=== PATIENT | female | born 1935 | race Caucasian/White ===

== ENCOUNTER → 2016-08-11 | Outpatient (CLI) | payer MEDICARE, OTHER ==
--- NOTE | 2016-08-11 16:46 | RAD ---
EXAM DESCRIPTION: Knee,Left Complete CLINICAL HISTORY: 81 years,Female,PAIN INLEFT KNEE COMPARISON: September 25, 2014 FINDINGS: The left knee demonstrates no fractures, dislocations, or other acute bony abnormalities. The joint spaces moderate loss of patellofemoral compartment and mild to minimal in the medial compartment. The soft tissues are unremarkable. No joint effusion. 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
--- NOTE | 2016-08-11 16:51 | RAD ---
EXAM DESCRIPTION: Pelvis CLINICAL HISTORY: 81 years, Female, PAIN IN LEFT HIP COMPARISON: September 25, 2014 FINDINGS: Pelvis demonstrates no fractures or other acute adenitis. The joint spaces of the hips and SI joints appear age-appropriate with only mild ossified changes of the SI joints which for the patient's age it extremely good. Multiple calcified bodies in the pelvis most likely phleboliths and a small amount of iodinated contrast seen in the urinary bladder IMPRESSION: Pelvis looks unremarkable for patient's age stable. There is what appears to be iodinated contrast in the urinary bladder. But I see no studies which required that therefore cannot exclude a triangular shaped foreign body overlying the region of the urinary bladder. Electronically signed by: Olayinka Higgins MD 08/11/2016 4:50 PM CDT
== END ==
LOC: RAD 08:00
PROVIDERS: ATTEND Orthopaedic Surgery
DX: M25.562 Pain in left knee (principal); M25.552 Pain in left hip

== ENCOUNTER → 2016-12-26 | Outpatient (CLI) | payer MEDICARE, OTHER | END | disposition home or self-care (01) | LOC: GMAB 10:25 | PROVIDERS: ATTEND Family Medicine | DX: E03.9 Hypothyroidism, unspecified (principal); I10 Essential (primary) hypertension ==

== ENCOUNTER → 2017-01-04 | Outpatient (CLI) | payer MEDICARE, OTHER ==
--- NOTE | 2017-01-05 09:15 | RAD ---
EXAM DESCRIPTION: Chest,2 Views CLINICAL HISTORY: COUGH COMPARISON: August 06, 2015 FINDINGS: Two-view chest x-ray shows enlargement of the cardiac silhouette. Pulmonary vascularity is mildly prominent. Left subclavian dual-lead transvenous cardiac pacemaker is stable. The lungs are mildly hyperinflated. Chronic appearing increased interstitial changes throughout the lungs are seen. Prominent increased interstitial markings in the right hilar and left infrahilar region are seen compared to previous. There is a nodular density only seen on lateral projection anterior to the spine in the lower chest. The small calcified pulmonary nodule seen on CT scan of the chest from July 2013 are difficult to identify. No significant pleural effusion is seen. Mild disc degenerative changes of the spine are seen. IMPRESSION: Chronic appearing increased interstitial markings in the lungs are noted. This appears progressively more prominent than previous exam. Superimposed acute pneumonia or pneumonitis on chronic interstitial changes versus worsening of chronic interstitial fibrotic disease is suspected. Pulmonary nodule in the lower chest anterior to the spine only seen on lateral projection seen. Consider further evaluation with CT of the chest for better delineation of this finding in comparison with chest CT from July 2013. Electronically signed by: Erich Hunter MD 01/05/2017 9:14 AM CDT
--- NOTE | 2017-01-05 10:20 | US ---
EXAM DESCRIPTION: Carotid Duplex CLINICAL HISTORY: 81 years,Female,BILATERAL OCLUSION COMPARISON: None TECHNIQUE: Multiple real-time duplex Doppler ultrasound images were obtained the carotid arteries. FINDINGS: The right carotid system demonstrates severe intimal thickening. The common carotid artery demonstrates mild soft tissue plaque at the carotid bulb but results in about a 40% diameter reduction at the origin of the internal carotid artery and is rather focal.. The ICA demonstrates diffuse irregular plaque throughout slightly less than 10-20% stenotic and all mostly soft tissue plaque. The left carotid system demonstrates severe intimal thickening. The common carotid artery demonstrates mild diffuse soft tissue plaque distally and into the bulb of no symptoms stenosis greater than 20%. The internal carotid artery demonstrates scattered mild soft tissue wall plaques as well but no significant stenosis greater than 20%. The right carotid system demonstrates rather irregular waveforms. The right vertebral artery demonstrates antegrade flow. The left carotid system demonstrates regular and irregular waveforms. The left vertebral artery demonstrates antegrade flow. On the right, the velocity in the proximal common carotid artery is 55 cm/sec. The mid internal carotid artery is 87 cm/sec. The ICA/CCA ratio is 1.6 On the left, the velocity in the proximal common carotid artery is 61 cm/sec. The distal internal carotid artery is 59 cm/sec. The ICA/CCA ratio is 1. IMPRESSION: There is severe intimal thickening bilaterally. And mostly diffuse mild less than 20% soft tissue plaques throughout. However at the very origin of the right internal carotid artery there is a very focal soft tissue plaque which may result in about 40% diameter reduction. But no hemodynamic significant stenosis. Electronically signed by: Olayinka Higgins MD 01/05/2017 10:18 AM CDT
== END | disposition home or self-care (01) ==
LOC: US 14:45
PROVIDERS: ATTEND Family Medicine
DX: I65.23 Occlusion and stenosis of bilateral carotid arteries (principal); R05 Cough

== ENCOUNTER 2017-01-10 00:56 | Emergency (ER) | payer MEDICARE, OTHER ==
[2017-01-10] MEDS ORDERED: LABETALOL INJ 5 MG/ML VIAL IV ONE (01:18)
[2017-01-10] MEDS ORDERED: SODIUM CHLORIDE 0.9% 1000ML 1,000 ML IVS ONE (01:18)
--- NOTE | 2017-01-10 01:22 | ED.PDOC ---
History of Present Illness - General Chief Complaint: Cardiovascular Problem Stated Complaint: "heart racing" Time Seen by Provider: 01/10/17 01:05 Source: patient, RN notes reviewed, Vital Signs reviewed Exam Limitations: no limitations - History of Present Illness Initial Comments: Patient comes in with c/o of a rapid heart rate and low blood pressure. She was recently diagnosed with pneumonia and has been on 2 antibiotics and prednisone. For the past week her blood pressure has been running low so her Self Defense Instructor cut her Amilodipine in 1/ last Sunday. He pulse had been in the 60-80's until tonight when she felt her a. fib kick in. No chest pain or SOB. Timing/Duration: 1-3 hours Severity: moderate Location: other - No pain just palpitations Activities at Onset: rest Prior Chest Pain/Cardiac Workup: other - Known A. Fib with pacemaker placed in 2015 Improving Factors: nothing Worsening Factors: nothing Nitro Today/Relief: no nitro taken today Aspirin Treatment Today: no aspirin today Associated Symptoms: denies symptoms Allergies/Adverse Reactions: Allergies NO KNOWN ALLERGY Allergy (Verified 01/10/17 01:16) Home Medications: Ambulatory Orders Fexofenadine HCl [Sary Allergy] 180 mg PO DAILY 04/30/12 Furosemide 40 mg PO DAILY 04/30/12 Rivaroxaban [Xarelto] 20 mg PO DAILY 06/28/14 Acetaminophen [Tylenol] 500 mg PO PRN PRN 08/06/15 Losartan Potassium 50 mg PO DAILY 08/06/15 Levothyroxine Sodium [Synthroid] 50 mcg PO QAM #30 tab 08/07/15 Metoprolol Tartrate 25 mg PO QPM #30 tab 08/07/15 Metoprolol Tartrate [Lopressor] 12.5 mg PO QAM #30 tab 08/07/15 Acetaminophen [Tylenol] 500 mg PO PRN 01/10/17 Amlodipine Besylate 10 mg PO DAILY 01/10/17 Amoxicillin & Pot Clavulanate [Augmentin] 875 mg PO BID 01/10/17 Doxycycline Hyclate 100 mg PO BID 01/10/17 Fexofenadine HCl [Sary Allergy] 180 mg PO PRN 01/10/17 Saccharomyces Boulardii [Florastor] 250 mg PO DAILY 01/10/17 predniSONE 10 mg PO DAILY 01/10/17 Review of Systems - Review of Systems Constitutional: States: no symptoms reported EENTM: States: no symptoms reported Respiratory: States: cough - currently being treated for pneumonia Cardiology: States: palpitations. Denies: chest pain Gastrointestinal/Abdominal: States: no symptoms reported Musculoskeletal: States: no symptoms reported Skin: States: no symptoms reported Neurological: States: no symptoms reported All other Systems: No Change from Baseline Past Medical History (General) - Patient Medical History Hx Seizures: No Hx Stroke: No Hx Dementia: No Hx Asthma: No Hx of COPD: No Hx Cardiac Disorders: Yes Hx Congestive Heart Failure: Yes Hx Pacemaker: No Hx Hypertension: Yes Hx Thyroid Disease: No Hx Diabetes: No Hx Gastroesophageal Reflux: No Hx Renal Disease: No Hx Cancer: No Hx of HIV: No Hx Hepatitis C: No Hx MRSA: No - Vaccination History Hx Tetanus, Diphtheria Vaccination: No Hx Influenza Vaccination: Yes Hx Pneumococcal Vaccination: No - Social History Hx Tobacco Use: No Hx Alcohol Use: No Hx Substance Use: No Hx Substance Use Treatment: No Hx Depression: No Hx Physical Abuse: No Hx Emotional Abuse: No Hx Suspected Abuse: No - Female History Patient : No Family Medical History - Family History Mother Family History: Unknown Physical Exam - Physical Exam General Appearance: Alert, Comfortable, No apparent distress, Well Developed, Well Groomed, Well Nourished Neck: supple, normal inspection Respiratory: lungs clear, normal breath sounds, no respiratory distress, no accessory muscle use Cardiovascular/Chest: no gallop, no murmur, irregularly irregular Extremity: normal inspection Neurologic: alert, normal mood/affect, oriented x 3 Skin Exam: normal color, warm/dry Comments: Vital Signs 01/10/17 01:17 Temperature 97.6 F Pulse Rate [ 142 H left] Respiratory 18 Rate Blood Pressure 116/93 [left] O2 Sat by Pulse 91 L Oximetry Progress - Progress Progress: 01/10/17 02:33 Discussed with patient that I don't believe I will be able to get her HR stabilized without dropping her blood pressure too low. Will transfer to [facility] Discussed with Dr. Wright who accepts patient in transfer and would like her started on a Cardizem drip - Results/Orders Results/Orders: Laboratory Tests 01/10/17 01/10/17 01/10/17 01:15 01:15 01:15 WBC 10.5 RBC 4.63 Hgb 14.4 Hct 42.2 MCV 91.2 MCH 31.0 MCHC 34.0 RDW 14.8 H Plt Count 241 MPV 9.3 Absolute Neuts (auto) 6.90 H Absolute Lymphs (auto) 2.70 Absolute Monos (auto) 0.80 Absolute Eos (auto) 0.00 Absolute Basos (auto) 0.10 Neutrophils % 65.2 Lymphocytes % 26.1 Monocytes % 7.6 Eosinophils % 0.4 L Basophils % 0.7 Sodium 142 Potassium 3.5 L Chloride 108 Carbon Dioxide 23 Anion Gap 14.5 BUN 30 H Creatinine 1.21 BUN/Creatinine Ratio 24.8 H Random Glucose 131 H Serum Osmolality 291.1 Calcium 9.3 Magnesium Total Bilirubin 0.6 AST 29 ALT 20 Alkaline Phosphatase 73 Creatine Kinase 29 CK-MB (CK-2) 1.2 CK-MB (CK-2) % Not Reportable Troponin I < 0.02 Serum Total Protein 6.9 Albumin 4.0 Globulin 2.9 Albumin/Globulin Ratio 1.4 01/10/17 01:15 WBC RBC Hgb Hct MCV MCH MCHC RDW Plt Count MPV Absolute Neuts (auto) Absolute Lymphs (auto) Absolute Monos (auto) Absolute Eos (auto) Absolute Basos (auto) Neutrophils % Lymphocytes % Monocytes % Eosinophils % Basophils % Sodium Potassium Chloride Carbon Dioxide Anion Gap BUN Creatinine BUN/Creatinine Ratio Random Glucose Serum Osmolality Calcium Magnesium 1.9 Total Bilirubin AST ALT Alkaline Phosphatase Creatine Kinase CK-MB (CK-2) CK-MB (CK-2) % Troponin I Serum Total Protein Albumin Globulin Albumin/Globulin Ratio - EKG/XRAY/CT EKG: Atrial, Fibrillation - with RVR, nonspecific ST T wave Chg, Unchanged from - Not significantly changed from 10/06/15 Departure - Departure Clinical Impression: Atrial fibrillation with rapid ventricular response Time of Disposition: 02:34 Disposition: Transfer to Hospital Condition: Good Departure Forms: ED Discharge - Pt. Copy, Patient Portal Self Enrollment Referrals: Yunier Martin MD [Primary Care Provider] - 1-2 Weeks Home Medications: Ambulatory Orders Fexofenadine HCl [Sary Allergy] 180 mg PO DAILY 04/30/12 Furosemide 40 mg PO DAILY 04/30/12 Rivaroxaban [Xarelto] 20 mg PO DAILY 06/28/14 Acetaminophen [Tylenol] 500 mg PO PRN PRN 03/25/16 Losartan Potassium 50 mg PO DAILY 08/06/15 Levothyroxine Sodium [Synthroid] 50 mcg PO QAM #30 tab 08/07/15 Metoprolol Tartrate 25 mg PO QPM #30 tab 08/07/15 Metoprolol Tartrate [Lopressor] 12.5 mg PO QAM #30 tab 08/07/15 Acetaminophen [Tylenol] 500 mg PO PRN 01/10/17 Amlodipine Besylate 10 mg PO DAILY 01/10/17 Amoxicillin & Pot Clavulanate [Augmentin] 875 mg PO BID 01/10/17 Doxycycline Hyclate 100 mg PO BID 01/10/17 Fexofenadine HCl [Sary Allergy] 180 mg PO PRN 01/10/17 Saccharomyces Boulardii [Florastor] 250 mg PO DAILY 01/10/17 predniSONE 10 mg PO DAILY 01/10/17 Transfer to Outside Facility - Transfer Information Accepting Provider:: Dr. Wright Accepting Facility: [facility] Reason for Transfer: specialized care not available
[2017-01-10] MEDS ORDERED: diltiaZEM DRIP 125 MG/25 ML VIAL IVPB ONE (02:36)
[2017-01-10] MEDS ORDERED: SODIUM CHLORIDE 0.9% 100ML 100 ML IVPB ONE (02:36)
[2017-01-10] MEDS ORDERED: diltiaZEM DRIP 125 MG in SODIUM CHLORIDE 0.9% 100ML 100 ML IVPB SCH (03:00)
[2017-01-10 03:04] VITALS: TEMP 97
[2017-01-10 03:26] VITALS: BP 129/81; O2SAT 94
== END 2017-01-10 03:31 | disposition short-term general hospital (02) ==
LOC: ER 00:56
DX: I48.91 Unspecified atrial fibrillation (principal); I11.0 Hypertensive heart disease with heart failure; I10 Essential (primary) hypertension; Z79.899 Other long term (current) drug therapy
CPT/HCPCS: 36415; 80053; 82550; 82553; 83735; 84484; 85025; 93005; J7030; J7050

== ENCOUNTER → 2017-02-08 | Outpatient (CLI) | payer MEDICARE, OTHER ==
--- NOTE | 2017-02-08 18:02 | CT ---
EXAM DESCRIPTION: Chest w/o Contrast CLINICAL HISTORY: 81 years, Female, SOLITARY PULMONARY NODULE COMPARISON: Chest x-ray January 04, 2017 TECHNIQUE: Thin-section noncontrast axial CT images are obtained according to our protocol. Reconstructed MPR images are created and reviewed as well. This exam was performed according to our departmental dose-optimization program, which includes automated exposure control, adjustment of the mA and/or kV according to patient size and/or use of iterative reconstruction technique. FINDINGS: Contrast CT evaluation of the chest shows posterior basilar dependent atelectasis and/or mild subpleural scarring. Small calcified granulomata are noted in the posterior right lung that do not represent the plain film abnormality. There is mild inflammatory changes or patchy scarring in the mid lung field laterally on the right with two tiny granulomata in the posterior right apex subpleural in location are noted. An additional small granulomatous calcification in the medial posterior aspect of the right midlung is noted. On the left there is mild dependent atelectasis and subpleural scarring with numerous small granulomatous calcifications. Pattern is most consistent with old granulomatous disease such as coccidiomycosis or histoplasmosis. A soft tissue density nodule or mass to suggest malignancy or metastatic disease is not apparent. Permanent left-sided cardiac pacer is in place and a small pericardial effusion is incidentally noted below the diaphragm small granulomatous calcifications within the liver and spleen are noted. The thoracic inlet and superior mediastinum are unremarkable with small subcentimeter mediastinal lymph nodes noted. The hilar region is unremarkable. IMPRESSION: 1. Numerous small granulomatous calcifications both lungs as well as the liver and spleen consistent with old granulomatous disease. 2. No dominant pulmonary mass or soft tissue density pulmonary nodule to suggest metastatic disease or a primary pulmonary malignancy is seen. 3. Mild cardiomegaly and a small pericardial effusion. 4. Indwelling permanent pacer. Electronically signed by: Garland Mccartney MD 02/08/2017 6:01 PM CDT
== END | disposition home or self-care (01) ==
LOC: CT 09:00
PROVIDERS: ATTEND Family Medicine
DX: R91.1 Solitary pulmonary nodule (principal)

== ENCOUNTER 2017-09-01 14:04 | Emergency (ER) | payer MEDICARE, OTHER ==
[2017-09-01] MEDS ORDERED: IPRATROPIUM/ALBUTEROL 3 ML VIAL NEB ONE ×2 (14:36→17:03)
--- NOTE | 2017-09-01 14:36 | ED.PDOC ---
History of Present Illness - General Chief Complaint: Respiratory Problem Stated Complaint: cough Time Seen by Provider: 09/01/17 14:35 Source: patient Exam Limitations: no limitations - History of Present Illness Comments: Chioma Morton 82 y/o female stated she had dry cough for the last 3 weeks not getting better has b-agonist inhaler and stated has it during fall and spring .Denies history of asthma.No fever or chills.Stated just SOB during coughing episodes. Timing/Duration: other - 3 weeks Cough Quality/Degree: dry cough Possible Cause: allergen exposure Improving Factors: nothing Worsening Factors: other - seasonal Associated Symptoms: other - see hpi Allergies/Adverse Reactions: Allergies NO KNOWN ALLERGY Allergy (Verified 01/10/17 01:16) Home Medications: Ambulatory Orders Fexofenadine HCl [Sary Allergy] 180 mg PO DAILY 04/30/12 Furosemide 40 mg PO DAILY 04/30/12 Rivaroxaban [Xarelto] 20 mg PO DAILY 06/28/14 Acetaminophen [Tylenol] 500 mg PO PRN PRN 08/06/15 Losartan Potassium 50 mg PO DAILY 08/06/15 Levothyroxine Sodium [Synthroid] 50 mcg PO QAM #30 tab 08/07/15 Metoprolol Tartrate 25 mg PO QPM #30 tab 08/07/15 Metoprolol Tartrate [Lopressor] 12.5 mg PO QAM #30 tab 08/07/15 Acetaminophen [Tylenol] 500 mg PO PRN 01/10/17 Amlodipine Besylate 10 mg PO DAILY 01/10/17 Amoxicillin & Pot Clavulanate [Augmentin] 875 mg PO BID 01/10/17 Doxycycline Hyclate 100 mg PO BID 01/10/17 Fexofenadine HCl [Sary Allergy] 180 mg PO PRN 01/10/17 Saccharomyces Boulardii [Florastor] 250 mg PO DAILY 01/10/17 predniSONE 10 mg PO DAILY 01/10/17 Montelukast [Singulair] 10 mg PO BEDTIME #30 tab 09/01/17 predniSONE 20 mg PO DAILY #7 tab 09/01/17 Review of Systems - Review of Systems Constitutional: States: no symptoms reported EENTM: States: no symptoms reported Respiratory: States: see HPI Cardiology: States: no symptoms reported Gastrointestinal/Abdominal: States: no symptoms reported Genitourinary: States: no symptoms reported All other Systems: Reviewed and Negative, No Change from Baseline Past Medical History (General) - Patient Medical History Hx Seizures: No Hx Stroke: No Hx Dementia: No Hx Asthma: No Hx of COPD: No Hx Cardiac Disorders: Yes Hx Congestive Heart Failure: Yes Hx Pacemaker: No Hx Hypertension: Yes Hx Thyroid Disease: No Hx Diabetes: No Hx Gastroesophageal Reflux: No Hx Renal Disease: No Hx Cancer: No Hx of HIV: No Hx Hepatitis C: No Hx MRSA: No Surgical History: tonsillectomy - Vaccination History Hx Tetanus, Diphtheria Vaccination: No Hx Influenza Vaccination: Yes Hx Pneumococcal Vaccination: No - Social History Hx Tobacco Use: No Hx Alcohol Use: No Hx Substance Use: No Hx Substance Use Treatment: No Hx Depression: No Hx Physical Abuse: No Hx Emotional Abuse: No Hx Suspected Abuse: No - Female History Patient : No Family Medical History - Family History Mother Family History: Unknown Hx Family Hypertension: Yes - parents Hx Cardiac Disease: Yes - dad Physical Exam - Physical Exam General Appearance: Alert, Comfortable, No apparent distress Eye Exam: bilateral normal ENT Exam: normal ENT inspection, hearing grossly normal, pharynx normal Neck: non-tender, full range of motion, supple Respiratory: chest non-tender, lungs clear, normal breath sounds, no respiratory distress, other - speaks in full sentences Cardiovascular/Chest: normal peripheral pulses, regular rate, rhythm, no murmur Gastrointestinal/Abdominal: non tender, soft, no organomegaly Extremity: normal range of motion, non-tender, no pedal edema, no calf tenderness Skin Exam: normal color, warm/dry Lymphatic: no adenopathy Progress - Progress Progress: 09/01/17 17:26 Vital Signs - 8 hr 09/01/17 09/01/17 09/01/17 14:20 15:21 17:23 Temperature 99.6 F Pulse Rate 71 77 Pulse Rate [ 70 left brachial] Respiratory 22 18 18 Rate Blood Pressure 103/58 [left brachial] O2 Sat by Pulse 92 L 94 L 97 Oximetry - Results/Orders Results/Orders: 09/02/17 09:00 [facility] Daily [facility] Daily Laboratory Results - last 24 hr 09/01/17 09/01/17 14:56 14:56 WBC 8.1 RBC 4.60 Hgb 13.5 Hct 40.6 MCV 88.3 MCH 29.4 MCHC 33.3 RDW 16.7 H Plt Count 310 MPV 7.9 Absolute Neuts (auto) 5.70 Absolute Lymphs (auto) 1.40 Absolute Monos (auto) 0.80 Absolute Eos (auto) 0.10 Absolute Basos (auto) 0.10 Neutrophils % 70.7 Lymphocytes % 17.0 L Monocytes % 10.2 H Eosinophils % 0.7 L Basophils % 1.4 PT 22.7 H* INR 1.970 PTT (SP) 45.0 H Sodium 144 Potassium 4.3 Chloride 107 Carbon Dioxide 27 Anion Gap 14.3 BUN 22 H Creatinine 1.17 BUN/Creatinine Ratio 18.8 Random Glucose 104 Serum Osmolality 290.5 Lactic Acid 1.6 Calcium 9.4 Magnesium 1.8 Total Bilirubin 0.7 Direct Bilirubin 0.1 Indirect Bilirubin 0.6 AST 28 ALT 12 Alkaline Phosphatase 82 Creatine Kinase 71 CK-MB (CK-2) 1.5 CK-MB (CK-2) % Not Reportable Troponin I < 0.02 B-Natriuretic Peptide 668.0 H* Serum Total Protein 7.3 Albumin 3.8 - EKG/XRAY/CT XRAY: chest - no acute cardiopulmonary disease Departure - Departure Clinical Impression: Reactive airway disease with acute exacerbation Qualifiers: Asthma severity: unspecified severity Qualified Code(s): J45.901 - Unspecified asthma with (acute) exacerbation Time of Disposition: 17:29 Disposition: Discharge to Home or Self Care Condition: Fair Departure Forms: ED Discharge - Pt. Copy, Patient Portal Self Enrollment Instructions: DI for Reactive Airway Disease-Adult, Reactive Airway Disease- Adult Referrals: Yunier Martin MD [Primary Care Provider] - 1-2 Weeks Prescriptions: Montelukast [Singulair] 10 mg PO BEDTIME #30 tab predniSONE 20 mg PO DAILY #7 tab Home Medications: Ambulatory Orders Fexofenadine HCl [Sary Allergy] 180 mg PO DAILY 04/30/12 Furosemide 40 mg PO DAILY 04/30/12 Rivaroxaban [Xarelto] 20 mg PO DAILY 06/28/14 Acetaminophen [Tylenol] 500 mg PO PRN PRN 08/06/15 Losartan Potassium 50 mg PO DAILY 08/06/15 Levothyroxine Sodium [Synthroid] 50 mcg PO QAM #30 tab 08/07/15 Metoprolol Tartrate 25 mg PO QPM #30 tab 03/26/16 Metoprolol Tartrate [Lopressor] 12.5 mg PO QAM #30 tab 08/07/15 Acetaminophen [Tylenol] 500 mg PO PRN 01/10/17 Amlodipine Besylate 10 mg PO DAILY 01/10/17 Amoxicillin & Pot Clavulanate [Augmentin] 875 mg PO BID 01/10/17 Doxycycline Hyclate 100 mg PO BID 01/10/17 Fexofenadine HCl [Sary Allergy] 180 mg PO PRN 01/10/17 Saccharomyces Boulardii [Florastor] 250 mg PO DAILY 01/10/17 predniSONE 10 mg PO DAILY 01/10/17 Montelukast [Singulair] 10 mg PO BEDTIME #30 tab 09/01/17 predniSONE 20 mg PO DAILY #7 tab 09/01/17 Additional Instructions: May Take Mucinex -DM one tablet am/pm for cough ;continue with all home meds; Follow up with primary Md 03 September 2017 as needed;Return to ER as needed
--- NOTE | 2017-09-01 15:06 | RAD ---
EXAM DESCRIPTION: Chest,1 View CLINICAL HISTORY: cough COMPARISON: January 04, 2017 FINDINGS: Cardiac silhouette is within normal limits. Pacer leads project over the heart. There is atherosclerosis. There is no focal parenchymal or pleural disease. There is no acute osseous process visualized. IMPRESSION: No evidence of acute cardiopulmonary disease. Electronically signed by: Nikhil Taylor MD 09/01/2017 3:05 PM CDT
[2017-09-01 15:20] VITALS: TEMP 99.6
[2017-09-01] MEDS ORDERED: methylPREDNISolone SODIUM SUC 125 MG/2 ML VIAL IV ONE (16:28)
[2017-09-01] MEDS ORDERED: BENZONATATE PERLES 100 MG CAP PO ONE (17:27)
[2017-09-01] MEDS ORDERED: MONTELUKAST 10 MG TAB PO ONE (17:28)
[2017-09-01 17:50] VITALS: BP 104/45; O2SAT 92
== END 2017-09-01 17:45 | disposition home or self-care (01) ==
LOC: ER 14:04
DX: J45.901 Unspecified asthma with (acute) exacerbation (principal); I11.0 Hypertensive heart disease with heart failure; I50.9 Heart failure, unspecified; Z79.899 Other long term (current) drug therapy

== ENCOUNTER 2017-12-12 00:30 | Emergency (ER) | payer OTHER ==
[2017-12-12 00:46] VITALS: TEMP 97.8
[2017-12-12] MEDS ORDERED: NITROGLYCERIN 0.4 MG 25 EA TAB SL ONE ×2 (00:46→00:47)
[2017-12-12] MEDS ORDERED: ASPIRIN (CHEWABLE) 81 MG TAB ONE (00:47)
--- NOTE | 2017-12-12 00:54 | ED.PDOC ---
History of Present Illness - General Chief Complaint: Blood Pressure Problem Stated Complaint: right upper arm numb, nausea Time Seen by Provider: 12/12/17 00:52 Source: patient Exam Limitations: no limitations - History of Present Illness Initial Comments: Chioma Morton 82 y/o female came to ER with right upper extremity discomfort up to her neck anteriorly and posteriorly she stated that she was about to go to sleep but felt the discomfort and felt nauseated and decided to come to er.She has history of a.fib,chf s/p pacemaker,HTN,hypothyroidism,pulmonary HTN.Denies chest pain symptoms,SOB. Timing/Duration: 1 hour Severity: moderate Location: other - right upper extremity Activities at Onset: rest Prior Chest Pain/Cardiac Workup: cardiac cath, echocardiography, other - see hpi Improving Factors: nothing Worsening Factors: nothing Nitro Today/Relief: 0.4 mg x 1, provided by ED Aspirin Treatment Today: no aspirin today - Takes Xarelto daily for a.fib Associated Symptoms: other - see hpi Allergies/Adverse Reactions: Allergies NO KNOWN ALLERGY Allergy (Verified 01/10/17 01:16) Home Medications: Ambulatory Orders Fexofenadine HCl [Sary Allergy] 180 mg PO DAILY 04/30/12 Furosemide 40 mg PO DAILY 04/30/12 Rivaroxaban [Xarelto] 20 mg PO DAILY 06/28/14 Levothyroxine Sodium [Synthroid] 50 mcg PO QAM #30 tab 08/07/15 predniSONE 10 mg PO DAILY 01/10/17 Amiodarone HCl 200 mg PO DAILY 12/12/17 Metoprolol Tartrate 50 mg PO QPM 12/12/17 Potassium Chloride [K-Tab] 20 meq PO DAILY 12/12/17 Review of Systems - Review of Systems Constitutional: States: no symptoms reported EENTM: States: no symptoms reported Respiratory: States: no symptoms reported Cardiology: States: see HPI Gastrointestinal/Abdominal: States: no symptoms reported Genitourinary: States: no symptoms reported Musculoskeletal: States: no symptoms reported Skin: States: no symptoms reported Neurological: States: no symptoms reported Endocrine: States: no symptoms reported Hematologic/Lymphatic: States: no symptoms reported Past Medical History (General) - Patient Medical History Hx Seizures: No Hx Stroke: No Hx Dementia: No Hx Asthma: No Hx of COPD: No Hx Cardiac Disorders: Yes Hx Congestive Heart Failure: Yes Hx Pacemaker: No Hx Hypertension: Yes Hx Thyroid Disease: No Hx Diabetes: No Hx Gastroesophageal Reflux: No Hx Renal Disease: No Hx Cancer: No Hx of HIV: No Hx Hepatitis C: No Hx MRSA: No Surgical History: pacemaker, tonsillectomy, other - cardioversion - Vaccination History Hx Tetanus, Diphtheria Vaccination: No Hx Influenza Vaccination: Yes Hx Pneumococcal Vaccination: Yes - Social History Hx Tobacco Use: No Hx Alcohol Use: No Hx Substance Use: No Hx Substance Use Treatment: No Hx Depression: No Hx Physical Abuse: No Hx Emotional Abuse: No Hx Suspected Abuse: No - Female History Patient : No Family Medical History - Family History Mother Family History: Unknown Hx Family Asthma: Yes - copd-mom Hx Family Hypertension: Yes - parents Hx Cardiac Disease: Yes - dad Physical Exam - Physical Exam General Appearance: Alert, Comfortable, No apparent distress Eyes, Ears, Nose, Throat Exam: normal ENT inspection, pharynx normal Neck: non-tender, supple Respiratory: chest non-tender, lungs clear, normal breath sounds, no respiratory distress Cardiovascular/Chest: normal peripheral pulses, regular rate, rhythm, systolic murmur Peripheral Pulses: radial,right: 2+, radial,left: 2+ Gastrointestinal/Abdominal: non tender, soft Extremity: non-tender, normal inspection, no pedal edema, no calf tenderness Neurologic: no motor/sensory deficits, alert, oriented x 3 Skin Exam: normal color, warm/dry Lymphatic: no adenopathy Progress - Progress Progress: 12/12/17 01:12 Vital Signs - 8 hr 12/12/17 12/12/17 12/12/17 00:42 00:47 00:55 Temperature 97.8 F Pulse Rate [ 70 70 70 Apical] Respiratory 20 16 Rate Blood Pressure 160/116 153/88 [Left Arm] O2 Sat by Pulse 96 Oximetry 12/12/17 01:56 Feeling better Blood pressure 153/88;Taleked to her result of lab test which were all within normal and recommended hospital OBS but declined wants to go home. - Results/Orders Results/Orders: Vital Signs - 8 hr 12/12/17 12/12/17 12/12/17 00:42 00:47 00:55 Temperature 97.8 F Pulse Rate [ 70 70 70 Apical] Respiratory 20 16 Rate Blood Pressure 160/116 153/88 [Left Arm] O2 Sat by Pulse 96 Oximetry 12/12/17 12/12/17 01:18 01:40 Temperature Pulse Rate [ 70 72 Apical] Respiratory 18 16 Rate Blood Pressure 150/87 135/67 [Left Arm] O2 Sat by Pulse 96 96 Oximetry - EKG/XRAY/CT EKG: Sinus, no ST T wave changes Comments: HR-75;1o AV block DE-25.6 XRAY: chest - no acute abnormality Departure - Departure Clinical Impression: Chest pain, atypical, History of atrial fibrillation Time of Disposition: 01:58 Disposition: Discharge to Home or Self Care Condition: Fair Departure Forms: ED Discharge - Pt. Copy, Patient Portal Self Enrollment Instructions: DI for High Blood Pressure Referrals: Yunier Martin MD [Primary Care Provider] - 1-2 Weeks Home Medications: Ambulatory Orders Fexofenadine HCl [Sary Allergy] 180 mg PO DAILY 04/30/12 Furosemide 40 mg PO DAILY 04/30/12 Rivaroxaban [Xarelto] 20 mg PO DAILY 06/28/14 Levothyroxine Sodium [Synthroid] 50 mcg PO QAM #30 tab 08/07/15 predniSONE 10 mg PO DAILY 01/10/17 Amiodarone HCl 200 mg PO DAILY 12/12/17 Metoprolol Tartrate 50 mg PO QPM 12/12/17 Potassium Chloride [K-Tab] 20 meq PO DAILY 12/12/17 Additional Instructions: RETURN TO EMERGENCY ROOM NEEDED;Continue with all home medications
--- NOTE | 2017-12-12 01:09 | RAD ---
Chest single view on 12/12/2017 CLINICAL INDICATION: Chest pain COMPARISON: 09/01/2017 FINDINGS: 2-lead left subclavian pacemaker is noted in place. Mild cardiomegaly is noted. Vascular calcification is noted in the aorta. There is minimal basilar atelectasis. The lungs are otherwise clear. IMPRESSION: No significant change and no acute disease. Electronically signed by: Jose Luis Sommer 12/12/2017 1:08 AM CDT
[2017-12-12 02:01] VITALS: BP 133/77; O2SAT 97
== END 2017-12-12 02:00 | disposition home or self-care (01) ==
LOC: ER 00:30
DX: R07.89 Other chest pain (principal); I48.91 Unspecified atrial fibrillation; I44.30 Unspecified atrioventricular block; Z95.0 Presence of cardiac pacemaker; I11.0 Hypertensive heart disease with heart failure; I50.9 Heart failure, unspecified; E03.9 Hypothyroidism, unspecified; Z79.899 Other long term (current) drug therapy

== ENCOUNTER → 2018-02-04 | Outpatient (CLI) | payer OTHER | LOC: GMAE 10:37 | PROVIDERS: ATTEND Family Medicine | DX: E03.9 Hypothyroidism, unspecified (principal) ==

== ENCOUNTER → 2018-05-16 | Outpatient (CLI) | payer OTHER | LOC: GMAE 11:36 | PROVIDERS: ATTEND Family Medicine | DX: E03.9 Hypothyroidism, unspecified (principal) ==

== ENCOUNTER → 2018-05-20 | Outpatient (CLI) | payer OTHER ==
--- NOTE | 2018-05-20 15:31 | US ---
EXAM DESCRIPTION: Carotid Duplex CLINICAL HISTORY: R42 dizziness, bruit on auscultation of the neck COMPARISON: Previous study January 04, 2017 TECHNIQUE: Carotid Doppler ultrasound FINDINGS: Right Submitted images show calcified plaque at the right carotid bifurcation and mild tortuosity of the right CCA. Elevated flow velocity in the proximal right ICA is consistent with 50-69% stenosis. The following flow velocities were obtained: Common carotid artery peak systolic flow velocity measures 68 centimeters per second. Internal carotid artery peak systolic flow velocity measures 131 centimeters per second. This is consistent with 50-69% stenosis. External carotid artery peak systolic flow velocity measures 102 centimeters per second. Flow in the right vertebral artery is antegrade. The right internal carotid to common carotid peak systolic flow velocity ratio equals 1.9 which is at the upper limits of normal. Left Submitted images show mild tortuosity of the left CCA. There is calcified plaque at the right carotid bifurcation extending into the proximal right ICA. The following flow velocities were obtained: Common carotid artery peak systolic flow velocity measures 71 centimeters per second. Internal carotid artery peak systolic flow velocity measures 101 centimeters per second. External carotid artery peak systolic flow velocity measures 69 centimeters per second. Flow in the left vertebral artery is antegrade. The left internal carotid to common carotid peak systolic flow velocity ratio of 1.4 is normal. IMPRESSION: Elevated flow velocity in the proximal right ICA consistent with 50-69% stenosis. Electronically signed by: Alvin Moore MD 05/20/2018 3:29 PM [facility]
== END ==
LOC: US 13:53
PROVIDERS: ATTEND Family Medicine
DX: I65.21 Occlusion and stenosis of right carotid artery (principal); R42 Dizziness and giddiness

== ENCOUNTER → 2018-11-18 | Outpatient (CLI) | payer OTHER | LOC: GMAE 12:13 | PROVIDERS: ATTEND Family Medicine | DX: E03.9 Hypothyroidism, unspecified (principal) ==

== ENCOUNTER → 2018-12-02 | Outpatient (CLI) | payer OTHER ==
--- NOTE | 2018-12-02 10:15 | RAD ---
4 radiographic left knee Indication: M25.562/M25.552 Comparison: August 11, 2016 Impression: Cortical collapse central to the medial weightbearing margin medial femoral condyle which can indicate underlying subchondral fracture. MRI could better evaluate. Moderate to severe narrowing medial knee compartment with mild narrowing lateral and patellofemoral compartments. Moderate size knee effusion. Osteopenia. If this is a new finding, DEXA scan recommended as well as evaluation for possible osteoporosis treatment. Electronically signed by: Edson Downey MD 12/02/2018 10:13 AM CDT
--- NOTE | 2018-12-02 10:19 | RAD ---
Single frontal radiograph pelvis Indication: M25.562/M25.552 Comparison: August 01, 2016 Impression: No acute pelvic fracture identified. Evaluation for fracture is limited given the degree of osteopenia. If high clinical concern for acute fracture, correlation with MRI recommended given its greater sensitivity in the osteopenic patient. If the patient cannot tolerate MRI imaging or more urgent imaging is required, CT could be performed, however it is less sensitive in the osteopenic patient when compared to MRI. Mild bilateral hip osteoarthritis. A vaginal device suspected. Clinical correlation recommended. Mild bilateral SI joint osteoarthritis. Electronically signed by: Edson Downey MD 12/02/2018 10:17 AM CDT
== END ==
LOC: RAD 09:13
PROVIDERS: ATTEND Orthopaedic Surgery
DX: M85.862 Other specified disorders of bone density and structure, left lower leg (principal); M25.862 Other specified joint disorders, left knee; M16.0 Bilateral primary osteoarthritis of hip; M47.898 Other spondylosis, sacral and sacrococcygeal region

== ENCOUNTER → 2019-03-10 | Outpatient (CLI) | payer OTHER | LOC: GMAE 10:39 | PROVIDERS: ATTEND Family Medicine | DX: E03.9 Hypothyroidism, unspecified (principal); I10 Essential (primary) hypertension ==

== ENCOUNTER → 2019-10-08 | Outpatient (CLI) | payer OTHER ==
[~2019-10-08] MED LIST: ALBUTEROL SULFATE 2.5 MG/3 ML VIAL NEB ONE
--- NOTE | 2019-10-08 17:44 | RAD ---
EXAM DESCRIPTION: Chest,2 Views CLINICAL HISTORY: 84 years Female, COUGH COMPARISON: 12 December 2017 TECHNIQUE: PA/lateral FINDINGS: A pacemaker with atrial and ventricular leads is seen in place. Basilar interstitial fibrosis is observed bilaterally. The heart is at the upper limits of normal in size. No pleural fluid is seen. IMPRESSION: Basilar interstitial fibrotic appearing changes are observed. No acute parenchymal pathology is detected. Electronically signed by: Olayinka Guallpa MD 10/08/2019 5:43 PM CDT
== END ==
LOC: RESP 14:07
PROVIDERS: ATTEND Family Medicine
DX: R05 Cough (principal); J84.10 Pulmonary fibrosis, unspecified
CPT/HCPCS: 71046; 94010; J7611

== ENCOUNTER → 2020-04-01 | Outpatient (CLI) | payer OTHER | LOC: GMAE 10:25 | PROVIDERS: ATTEND Family Medicine | DX: E03.9 Hypothyroidism, unspecified (principal); I10 Essential (primary) hypertension; E78.2 Mixed hyperlipidemia ==

== ENCOUNTER 2020-05-21 21:42 | Inpatient (IN) | payer OTHER ==
[2020-05-21] MEDS ORDERED: SODIUM CHLORIDE 0.9% (FLUSH) 10 ML SYG IV PRN (22:05)
--- NOTE | 2020-05-21 22:09 | ED.PDOC ---
History of Present Illness - General Time Seen by Provider: 05/21/20 22:05 Source: patient - History of Present Illness Initial Comments: 85-year-old female with past medical history of hypertension, CHF, A. fib, pacemaker who presents with chief complaint of shortness of breath. Patient reports onset of symptoms 3 days ago with gradual worsening. She currently rates her dyspnea as 5/10 severity, constant, worse with ambulating short distances around her home, no medications taken for relief. She checked her pulse ox at home which showed 88% so she came to the ED for evaluation and noted 86% on arrival. She additionally reports frequent nonproductive cough for several days. Denies chest pain, fevers, chills, sore throat, headache, body aches, abdominal pain, nausea/vomiting/diarrhea, urinary symptoms. Reports minimal leg swelling. Patient states she recently had a outpatient Covid test this week which was negative. No known recent sick contacts. Reports history of CHF and takes Lasix. States her usual weight is 175 pounds, unsure of current weight. [facility] is Dr. Thayer and PCP is Dr. Pastor. Allergies/Adverse Reactions: Allergies NO KNOWN ALLERGY Allergy (Verified 01/10/17 01:16) Home Medications: Ambulatory Orders Fexofenadine HCl [Sary Allergy] 180 mg PO DAILY 04/30/12 Furosemide 40 mg PO DAILY 04/30/12 Rivaroxaban [Xarelto] 20 mg PO BEDTIME 06/28/14 Amiodarone HCl 200 mg PO DAILY 12/12/17 Metoprolol Tartrate 50 mg PO BID 12/12/17 Potassium Chloride [K-Tab] 10 meq PO DAILY 12/12/17 Acetaminophen [Tylenol] 325 mg PO PRN PRN 01/05/20 Levothyroxine Sodium [Synthroid] 75 mcg PO QAM 01/05/20 Turmeric (Curcuma Longa) [Turmeric] 1,000 mg PO BID 01/05/20 Review of Systems - Review of Systems Review of Systems: 05/21/20 22:09 as per HPI All other Systems: Reviewed and Negative Past Medical History (General) - Patient Medical History Hx Seizures: No Hx Stroke: No Hx Dementia: No Hx Asthma: No Hx of COPD: No Hx Cardiac Disorders: Yes - Atrial fib,Heart Murmur Hx Congestive Heart Failure: Yes Hx Pacemaker: Yes Hx Hypertension: Yes Hx Thyroid Disease: Yes - Hypo Hx Diabetes: No Hx Gastroesophageal Reflux: No Hx Renal Disease: No Hx Cancer: No Hx of HIV: No Hx Hepatitis C: No Hx MRSA: No - Vaccination History Hx Tetanus, Diphtheria Vaccination: No Hx Influenza Vaccination: Yes Hx Pneumococcal Vaccination: Yes - Social History Hx Tobacco Use: No Hx Alcohol Use: No Hx Substance Use: No Hx Substance Use Treatment: No Hx Depression: No Hx Physical Abuse: No Hx Emotional Abuse: No Hx Suspected Abuse: No - Female History Patient : No Family Medical History - Family History Mother Family History: Unknown Hx Family Asthma: Yes - copd-mom Hx Family Hypertension: Yes - parents Hx Cardiac Disease: Yes - dad Physical Exam - Physical Exam General Appearance: Alert, Comfortable, No apparent distress Eye Exam: bilateral normal Ears, Nose, Throat: hearing grossly normal, normal ENT inspection, normal pharynx Neck: full range of motion, supple, normal inspection Respiratory: chest non-tender, no respiratory distress, no accessory muscle use, rales - Bibasilar rales noted w/o rhonchi or wheezing Cardiovascular/Chest: normal peripheral pulses, regular rate, rhythm, no gallop, no JVD, systolic murmur - 3/6 systolic murmur best heard LUSB Peripheral Pulses: radial,right: 2+, radial,left: 2+ Gastrointestinal/Abdominal: non tender, soft, no organomegaly Back Exam: normal inspection, no CVA tenderness, no vertebral tenderness Extremity: normal range of motion, non-tender, normal inspection, no calf tenderness, pedal edema - Trace BL LE pedal edema Neurologic: deputy coroner II-XII nml as tested, no motor/sensory deficits, alert, normal mood/affect, oriented x 3 Skin Exam: normal color, warm/dry Progress - Progress Progress: 05/21/20 22:11 Cough, dyspnea, hypoxia -Consider pneumonia, COVID-19, CHF, sepsis, PE, flu, other -Patient with SPO2 86% on room air upon arrival, easily corrects to 99% with 2 L nasal cannula oxygen. Patient able to speak in full sentences, no respiratory distress noted. Vitals otherwise stable -Obtain cardiac/respiratory work-up, respiratory panel 05/22/20 01:10 -Pt has remained stable in the ED. Her respiratory panel is negative for all pathogens including COVID-19. Lab work reveals elevated BNP level 868. Otherwise pretty unremarkable. WBC is 7000 without left shift or bandemia, lactic acid level normal. Serum creatinine slightly elevated from baseline at 1.4. D-dimer level normal. -Chest x-ray does reveal evidence of cardiomegaly with pulmonary vascular congestion as well as bilateral interstitial opacities. Findings may be consistent with acute congestive heart failure exacerbation. Consider also COVID-19 although the respiratory panel is negative. -I did discuss the patient with Wendy Blanchard who accepts the patient for admission. We will give Lasix 40 mg IV in the ED to see if she responds. Eber Huddleston MD Billing #[id number] 05/21/20 22:05 Sodium Chloride 0.9% (Flush) [Saline Flush Syringe] 10 ml IV PRN PRN 05/21/20 22:06 IV Care:Saline Lock per Protoc QSHIFT Telemetry .ONCE EKG Assessment ONCE Pulse Oximetry Assessment DAILY 05/21/20 22:15 EKG STAT 05/22/20 09:00 Pulse Ox Daily Laboratory Results - last 24 hr 05/21/20 05/21/20 05/21/20 22:06 22:06 22:06 WBC 7.0 RBC 3.85 L Hgb 10.0 L Hct 30.9 L MCV 80.2 L MCH 26.0 L MCHC 32.4 L RDW 16.8 H Plt Count 196 MPV 8.1 Absolute Neuts (auto) 4.30 Absolute Lymphs (auto) 1.60 Absolute Monos (auto) 1.00 H Absolute Eos (auto) 0.10 Absolute Basos (auto) 0.10 Neutrophils % 61.1 Lymphocytes % 22.5 Monocytes % 14.4 H Eosinophils % 1.3 Basophils % 0.7 PT 15.8 H INR 1.60 H PTT (SP) 45.8 H* D-Dimer, Quantitative 212.0 Sodium 141 Potassium 3.4 L Chloride 108 Carbon Dioxide 24 Anion Gap 12.4 BUN 28 H Creatinine 1.47 H BUN/Creatinine Ratio 19.0 Random Glucose 105 Serum Osmolality 287.1 Lactic Acid Calcium 8.3 L Troponin I B-Natriuretic Peptide 868.0 H* 05/21/20 05/21/20 22:06 22:07 WBC RBC Hgb Hct MCV MCH MCHC RDW Plt Count MPV Absolute Neuts (auto) Absolute Lymphs (auto) Absolute Monos (auto) Absolute Eos (auto) Absolute Basos (auto) Neutrophils % Lymphocytes % Monocytes % Eosinophils % Basophils % PT INR PTT (SP) D-Dimer, Quantitative Sodium Potassium Chloride Carbon Dioxide Anion Gap BUN Creatinine BUN/Creatinine Ratio Random Glucose Serum Osmolality Lactic Acid 1.1 Calcium Troponin I 0.02 B-Natriuretic Peptide - EKG/XRAY/CT EKG: Sinus - Normal sinus rhythm, heart rate 75, no ST elevations noted, Q waves noted in anteroseptal leads indicative of possible prior SC, axis normal, UT interval prolonged 200 ms, intervals otherwise normal, compared to 12/12/2017 EKG appears unchanged Departure - Departure Clinical Impression: Hypoxia Acute exacerbation of CHF (congestive heart failure) Qualifiers: Heart failure type: unspecified Qualified Code(s): I50.9 - Heart failure, unspecified Time of Disposition: 01:15 Disposition: Admit Patient Condition: Fair Diet: low salt diet Referrals: JULIANA PASTOR MD [Primary Care Provider] - 1-2 Weeks Home Medications: Ambulatory Orders Fexofenadine HCl [Sary Allergy] 180 mg PO DAILY 04/30/12 Furosemide 40 mg PO DAILY 04/30/12 Rivaroxaban [Xarelto] 20 mg PO BEDTIME 06/28/14 Amiodarone HCl 200 mg PO DAILY 12/12/17 Metoprolol Tartrate 50 mg PO BID 12/12/17 Potassium Chloride [K-Tab] 10 meq PO DAILY 12/12/17 Acetaminophen [Tylenol] 325 mg PO PRN PRN 01/05/20 Levothyroxine Sodium [Synthroid] 75 mcg PO QAM 01/05/20 Turmeric (Curcuma Longa) [Turmeric] 1,000 mg PO BID 01/05/20 Decision To Admit - Decistion To Admit Decision to Admit Reason: Admit from ER Decision to Admit Date: 05/22/20 Decision to Admit Time: 01:16
--- NOTE | 2020-05-21 22:55 | RAD ---
EXAM DESCRIPTION: Chest,1 View CLINICAL HISTORY: cough, dyspnea COMPARISON: 10/08/2019 FINDINGS: Single frontal radiograph view of the chest. Cardiomediastinal silhouette: Cardiac megaly. Pulmonary vascular congestion. Left-sided multilead pacemaker. Lungs: Bilateral interstitial opacities. Low lung volumes. No pneumothorax or large effusion. Bones: Degenerative change of the spine. Upper abdomen: No abnormality identified. IMPRESSION: 1. Cardiomegaly with interstitial pulmonary edema pattern. Superimposed acute pneumonic process could contribute to this appearance. Electronically signed by: Yunior Cox 05/21/2020 10:53 PM [facility]
[2020-05-22] MEDS ORDERED: FUROSEMIDE INJ 40 MG/4 ML VIAL IV ONE (01:09)
--- NOTE | 2020-05-22 02:40 | HP ---
SUPERVISING PHYSICIAN: Mirza Shelby M.D. CHIEF COMPLAINT: Coughing and shortness of breath. HISTORY OF PRESENT ILLNESS: This is an 85 year-old female patient who has a past history of hypertension, congestive heart failure, atrial fibrillation and a pacemaker. She presented to the Emergency Room with some shortness of breath. She has been feeling poorly since last Sunday. Initially it was mostly a cough that she usually gets about 3 times a year. Then she became short of breath. She actually was seen at the respiratory clinic at [facility]. She tested negative for COVID at that time, but had worsening shortness of breath with this increasing cough. It was dry and hacking. She received some cough medicine but it did not improve. She came to the Emergency Room because her O2 saturations at home were in 86 to 88%. In the Emergency Room, her vital signs showed a temperature 98.3, heart rate 78, blood pressure 156/101, respiratory rate 18, O2 saturation 88% on room air. She was given some Lasix as well as several treatments and her O2 saturations came up to the mid 90s on 2 liters. Lab studies were done. WBCs were 7,000, hemoglobin 10, hematocrit 30.9. D-dimer 212. Electrolytes were basically within normal limits with the exception of her potassium was slightly low at 3.4. BUN 28, creatinine 1.47. Baseline creatinine is about 0.8. Lactic acid was 1.1, BNP 868, troponin 0.02. Respiratory panel, including COVID, was negative. In addition to the Lasix, she was given breathing treatments and some azithromycin and Ceftriaxone. The patient was admitted to the hospital in stable condition. PAST MEDICAL HISTORY: 1. Congestive heart failure of unknown etiology. No echocardiogram to review. 2. Hypertension. 3. Atrial fibrillation on a beta momo and Xarelto. 4. Pacemaker insertion. 5. Heart murmur. 6. Hypothyroidism. PAST SURGICAL HISTORY: 1. Tonsillectomy as a child. 2. Pacemaker insertion. OUTPATIENT MEDICATIONS: 1. Furosemide. 2. Tumeric. 3. Fexofenadine. 4. Levothyroxine. 5. Metoprolol tartrate. 6. Potassium chloride. 7. Xarelto. ALLERGIES: NO KNOWN DRUG ALLERGIES. SOCIAL HISTORY: She lives in [place]. She denies any tobacco, ETOH or illicit drug use. REVIEW OF SYSTEMS: GENERAL: Positive for fatigue. Negative for fever or weight changes. HEENT: Positive for seasonal allergies. Negative for sore throat, vision changes or ear pain. RESPIRATORY: Positive for coughing and shortness of breath. Negative for wheezing. CARDIAC: Negative for chest pain, palpitations or tachycardia. GASTROINTESTINAL: Negative for nausea, vomiting, diarrhea or constipation. GENITOURINARY: Negative for hematuria, dysuria or polyuria. SKIN: Negative for lesions or rashes. NEUROLOGIC: Positive for weakness. Negative for headaches or seizures. PHYSICAL EXAMINATION: VITAL SIGNS: Temperature 98.8, heart rate 72, blood pressure 136/78, respiratory rate 18, O2 saturation 92% on 2 liters nasal cannula. GENERAL: This is an 85 year-old female patient lying in her hospital bed. She is in no acute distress. HEENT: Normocephalic, atraumatic. Pupils are equal and reactive. Oropharynx is clear. NECK: Supple without mass. RESPIRATORY: A few scattered rales throughout. CARDIOVASCULAR: Regular rate and rhythm. EXTREMITIES: No cyanosis, clubbing or edema. NEUROLOGIC: Awake, alert and oriented times three. Cranial nerves II-XII are grossly intact as tested. LABORATORY: As per the History of Present Illness. Chest x-ray shows: 1. Cardiomegaly with interstitial pulmonary edema pattern. Superimposed acute pneumonic process could contribute to this appearance. ASSESSMENT: 1. Congestive heart failure with acute exacerbation, uncertain etiology with no echocardiogram to review at this time. 2. Bilateral pneumonia most likely community acquired with shortness of breath and hypoxemia. 3. Acute renal failure. May be due to prerenal azotemia. Her admitting creatinine was 1.47, baseline creatinine 0.8. 4. Atrial fibrillation on Xarelto and a beta momo. 5. Hypertension. 6. Hypothyroidism. PLAN: The patient has been admitted to the hospital. Congestive heart failure guidelines have been initiated. She is on scheduled IV Lasix. Will titrate off of that as she clinically improves. I have also put her on the pneumonia guidelines with aggressive pulmonary hygiene, including Xopenex breathing treatments, both p.r.n. and scheduled. Her home medications will be resumed as soon as they are verified. I have started her on a very low dose of Lisinopril. Her Xarelto will be sufficient for her DVT prophylaxis. She will be on a PPI for ulcer prophylaxis. She will also continue on azithromycin and Rocephin as well as the aggressive pulmonary hygiene. I have given her cough medication and she has also received an IV steroid injection and the dose will be tapered to oral prednisone. An echocardiogram has been scheduled for Sunday. #[id number] [facility]
[2020-05-22] MEDS ORDERED: CHLORPHENIRAMINE W/HYDROCODONE 5 ML UD ONE ×2 (03:20→15:01)
[2020-05-22] MEDS: CHLORPHENIRAMINE W/HYDROCODONE 5 ML UD PO PRN ×2 (03:22→15:41)
[2020-05-22] MEDS ORDERED: NITROGLYCERIN 0.4 MG 25 EA TAB SL PRN (09:01)
[2020-05-22] MEDS ORDERED: ACETAMINOPHEN 325 MG TAB PO PRN (09:01)
[2020-05-22] MEDS ORDERED: SODIUM CHLORIDE 0.9% (FLUSH) 10 ML SYG IV PRN ×2 (09:01→13:22)
[2020-05-22] MEDS ORDERED: ONDANSETRON INJ 4 MG/2 ML VIAL IV PRN (09:01)
[2020-05-22] MEDS ORDERED: LEVALBUTEROL NEBS 1.25 MG/3 ML VIAL INH PRN (09:01)
[2020-05-22] MEDS ORDERED: guaiFENesin 100 MG/5 ML 10 ML UD PO PRN (09:16)
[2020-05-22] MEDS ORDERED: guaiFENesin 100 MG/5 ML 10 ML UD ONE (09:35)
[2020-05-22] MEDS ORDERED: POTASSIUM CHLORIDE 10 MEQ TAB PO ONE (09:35)
[2020-05-22] MEDS ORDERED: METOPROLOL TARTRATE 50 MG TAB ONE ×2 (09:35→19:55)
[2020-05-22] MEDS: FUROSEMIDE INJ 40 MG/4 ML VIAL IV SCH ×2 (10:26→17:58)
[2020-05-22] MEDS: IV SET AND CAP CHANGE INJ INJ SCH ×2 (10:26→15:48)
[2020-05-22] MEDS: NON-FORMULARY MEDICATION 1 EA MIS (Fexofenadine Hcl [Allegra Allergy] 180 MG) PO SCH (10:26)
[2020-05-22] MEDS: POTASSIUM CHLORIDE 10 MEQ PO SCH (10:53)
[2020-05-22] MEDS: METOPROLOL TARTRATE 25 MG TAB PO SCH ×2 (10:53→21:50)
[2020-05-22] MEDS ORDERED: methylPREDNISolone SODIUM SUC 125 MG/2 ML VIAL IV ONE (14:10)
[2020-05-22] MEDS ORDERED: AZITHROMYCIN IV 500 MG VIAL IVPB ONE (14:58)
[2020-05-22] MEDS ORDERED: SODIUM CHLORIDE 0.9% 250ML 250 ML ONE (14:59)
[2020-05-22] MEDS ORDERED: cefTRIAXone SODIUM 1 GM VIAL ONE (14:59)
[2020-05-22] MEDS ORDERED: SODIUM CHL 0.9% 50ML MIN-BAG+ 50 ML IVPB ONE (14:59)
[2020-05-22] MEDS: cefTRIAXone SODIUM 1 GM in SODIUM CHL 0.9% 50ML MIN-BAG+ 50 ML IVPB SCH (15:43)
[2020-05-22] MEDS: AZITHROMYCIN IV 500 MG in SODIUM CHLORIDE 0.9% 250ML 250 ML IVPB SCH (15:48)
[2020-05-22] MEDS ORDERED: RIVAROXABAN 10 MG TAB ONE ×2 (19:55→21:57)
[2020-05-22] MEDS ORDERED: methylPREDNISolone SODIUM SUC 40 MG/ML VIAL ONE (19:55)
[2020-05-22] MEDS: LEVALBUTEROL NEBS 1.25 MG/3 ML VIAL INH SCH ×2 (20:14→21:29)
[2020-05-22] MEDS: methylPREDNISolone SODIUM SUC 40 MG/ML VIAL IV SCH (21:48)
[2020-05-22] MEDS: guaiFENesin ER TAB 600 MG TAB PO SCH (21:48)
[2020-05-22] MEDS: BIFIDOBACTERIUM INFANTIS 4 MG CAP PO SCH (21:48)
[2020-05-22] MEDS: SODIUM CHLORIDE 0.9% (FLUSH) 10 ML SYG IV SCH (21:50)
[2020-05-22] MEDS: NON-FORMULARY MEDICATION 1 EA MIS (Rivaroxaban [Xarelto] 20 MG) PO SCH (22:01)
[2020-05-23] MEDS ORDERED: LEVOTHYROXINE SODIUM 0.075 MG TAB ONE (04:52)
[2020-05-23] MEDS ORDERED: methylPREDNISolone SODIUM SUC 40 MG/ML VIAL ONE (04:52)
[2020-05-23] MEDS: methylPREDNISolone SODIUM SUC 40 MG/ML VIAL IV SCH (05:38)
[2020-05-23] MEDS: LEVOTHYROXINE SODIUM 75 MCG PO SCH (05:38)
[2020-05-23] MEDS: PANTOPRAZOLE SODIUM IV 40 MG VIAL IV SCH (05:38)
[2020-05-23] MEDS ORDERED: predniSONE 20 MG TAB ONE (07:56)
[2020-05-23] MEDS ORDERED: FUROSEMIDE INJ 40 MG/4 ML VIAL ONE (07:56)
[2020-05-23] MEDS ORDERED: POTASSIUM CHLORIDE 10 MEQ TAB PO ONE (07:57)
[2020-05-23] MEDS ORDERED: METOPROLOL TARTRATE 50 MG TAB ONE ×2 (07:57→19:16)
[2020-05-23] MEDS: LEVALBUTEROL NEBS 1.25 MG/3 ML VIAL INH SCH ×4 (08:00→21:20)
[2020-05-23] MEDS: FUROSEMIDE INJ 40 MG/4 ML VIAL IV SCH (08:49)
[2020-05-23] MEDS: BIFIDOBACTERIUM INFANTIS 4 MG CAP PO SCH ×2 (08:50→20:07)
[2020-05-23] MEDS: predniSONE 20 MG TAB PO SCH (08:51)
[2020-05-23] MEDS: guaiFENesin ER TAB 600 MG TAB PO SCH ×2 (08:51→20:07)
[2020-05-23] MEDS: POTASSIUM CHLORIDE 10 MEQ PO SCH (08:53)
[2020-05-23] MEDS: METOPROLOL TARTRATE 25 MG TAB PO SCH ×2 (08:53→20:07)
[2020-05-23] MEDS: NON-FORMULARY MEDICATION 1 EA MIS (Fexofenadine Hcl [Allegra Allergy] 180 MG) PO SCH (08:53)
[2020-05-23] MEDS: LISINOPRIL 5 MG TAB PO SCH (08:54)
[2020-05-23] MEDS: SODIUM CHLORIDE 0.9% (FLUSH) 10 ML SYG IV SCH ×2 (08:54→20:09)
--- NOTE | 2020-05-23 10:45 | RAD ---
EXAM: XR Chest, 2 Views CLINICAL HISTORY: CHF TECHNIQUE: Frontal and lateral views of the chest. COMPARISON: 05/21/2020 FINDINGS: Lungs: Increased mild linear atelectasis present in both midlung lorenzana. Pleural space: No pleural effusion. No pneumothorax. Heart: No abnormality noted. No cardiomegaly. Mediastinum: No abnormality noted. Bones/joints: No abnormality noted. Vasculature: Persistent but improved vascular congestion present. Tubes, lines and devices: Stable enlarged cardiac shadow. Stable cardiac pacing device. IMPRESSION: Improved CHF. Electronically signed by: Neelam Melara MD 05/23/2020 10:43 AM [facility]
[2020-05-23] MEDS ORDERED: LEVALBUTEROL NEBS 1.25 MG/3 ML VIAL NEB ONE ×3 (11:50→19:53)
[2020-05-23] MEDS ORDERED: SODIUM CHL 0.9% 50ML MIN-BAG+ 50 ML IVPB ONE (12:38)
[2020-05-23] MEDS ORDERED: AZITHROMYCIN IV 500 MG VIAL IVPB ONE (12:38)
[2020-05-23] MEDS ORDERED: cefTRIAXone SODIUM 1 GM VIAL ONE (12:38)
[2020-05-23] MEDS ORDERED: SODIUM CHLORIDE 0.9% 250ML 250 ML ONE (12:38)
[2020-05-23] MEDS: AZITHROMYCIN IV 500 MG in SODIUM CHLORIDE 0.9% 250ML 250 ML IVPB SCH (12:54)
[2020-05-23] MEDS: cefTRIAXone SODIUM 1 GM in SODIUM CHL 0.9% 50ML MIN-BAG+ 50 ML IVPB SCH (12:54)
[2020-05-23] MEDS ORDERED: BIFIDOBACTERIUM INFANTIS 4 MG CAP ONE (19:15)
[2020-05-23] MEDS ORDERED: guaiFENesin ER TAB 600 MG TAB ONE (19:15)
[2020-05-23] MEDS ORDERED: RIVAROXABAN 10 MG TAB ONE (19:16)
[2020-05-23] MEDS: NON-FORMULARY MEDICATION 1 EA MIS (Rivaroxaban [Xarelto] 20 MG) PO SCH (20:08)
[2020-05-24] MEDS ORDERED: LEVOTHYROXINE SODIUM 0.075 MG TAB ONE (02:23)
[2020-05-24] MEDS ORDERED: PANTOPRAZOLE SODIUM IV 40 MG VIAL ONE (02:24)
--- NOTE | 2020-05-24 05:59 | RAD ---
EXAM DESCRIPTION: Chest,2 Views CLINICAL HISTORY: chf COMPARISON: Chest x-ray 05/23/2020. TECHNIQUE: PA and Lateral views of the chest FINDINGS: Unchanged appearance of left-sided cardiac pacemaker. Cardiac silhouette is mildly enlarged, unchanged. No pneumothorax. Unchanged bilateral interstitial prominence. Unchanged bilateral linear airspace disease. Small bilateral pleural effusions. IMPRESSION: 1. Unchanged bilateral interstitial prominence. 2. Small bilateral pleural effusions. Electronically signed by: Cheri Rees MD 05/24/2020 5:57 AM [facility]
[2020-05-24] MEDS: PANTOPRAZOLE SODIUM IV 40 MG VIAL IV SCH (06:05)
[2020-05-24] MEDS: LEVOTHYROXINE SODIUM 75 MCG PO SCH (06:05)
[2020-05-24] MEDS ORDERED: guaiFENesin ER TAB 600 MG TAB ONE (07:28)
[2020-05-24] MEDS ORDERED: LISINOPRIL 5 MG TAB ONE (07:28)
[2020-05-24] MEDS ORDERED: BIFIDOBACTERIUM INFANTIS 4 MG CAP ONE (07:28)
[2020-05-24] MEDS ORDERED: predniSONE 20 MG TAB ONE (07:28)
[2020-05-24] MEDS ORDERED: POTASSIUM CHLORIDE 10 MEQ TAB PO ONE (07:29)
[2020-05-24] MEDS ORDERED: SODIUM CHLORIDE 0.9% (FLUSH) 10 ML SYG ONE (07:29)
[2020-05-24] MEDS ORDERED: METOPROLOL TARTRATE 50 MG TAB ONE (07:29)
[2020-05-24] MEDS: FUROSEMIDE 40 MG TAB PO SCH (08:12)
[2020-05-24] MEDS: BIFIDOBACTERIUM INFANTIS 4 MG CAP PO SCH ×2 (08:12→20:33)
[2020-05-24] MEDS: predniSONE 20 MG TAB PO SCH (08:13)
[2020-05-24] MEDS: NON-FORMULARY MEDICATION 1 EA MIS (Fexofenadine Hcl [Allegra Allergy] 180 MG) PO SCH (08:13)
[2020-05-24] MEDS: guaiFENesin ER TAB 600 MG TAB PO SCH ×2 (08:13→20:33)
[2020-05-24] MEDS: METOPROLOL TARTRATE 25 MG TAB PO SCH ×2 (08:13→20:33)
[2020-05-24] MEDS: POTASSIUM CHLORIDE 10 MEQ PO SCH (08:13)
[2020-05-24] MEDS: LISINOPRIL 5 MG TAB PO SCH (08:14)
[2020-05-24] MEDS: SODIUM CHLORIDE 0.9% (FLUSH) 10 ML SYG IV SCH ×2 (08:14→20:33)
[2020-05-24] MEDS: LEVALBUTEROL NEBS 1.25 MG/3 ML VIAL INH SCH ×4 (08:20→20:54)
--- NOTE | 2020-05-24 08:38 | PN ---
SUPERVISING PHYSICIAN: Mirza Shelby MD DATE: 05/23/20 SUBJECTIVE: The patient is sitting up in bed. She has no complaints of shortness of breath, nausea or vomiting. OBJECTIVE: VITAL SIGNS: Temperature 97.1, heart rate 71, blood pressure 112/66, respiratory rate 14, O2 saturation 94% on room air. RESPIRATORY: A few scattered rales in the apices, otherwise clear to auscultation. CARDIAC: Regular rate and rhythm. NEUROLOGIC: Awake, alert and oriented times three. LABORATORY: WBCs 5,700, hemoglobin 9.4, hematocrit 28.9. She has a left shift on differential. Electrolytes are within normal limits with the exception of her potassium is slightly low at 3.4. BUN 23, creatinine 1.12, calcium 8.2. RADIOLOGY: Chest x-ray shows improved congestive heart failure. ASSESSMENT: 1. Congestive heart failure with acute exacerbation, uncertain etiology with no echocardiogram to review at this time. 2. Bilateral pneumonia most likely community acquired with shortness of breath and hypoxemia. 3. Acute renal failure, may be due to prerenal azotemia. Her admitting creatinine was 1.47, baseline creatinine 0.8. 4. Atrial fibrillation on Xarelto and a beta momo. 5. Hypertension. 6. Hypothyroidism. PLAN: We will continue present supportive care. She has her IV Lasix discontinued and we will continue with her routine dose of Lasix from home. Labs and films will be ordered for in the morning. She also will have an echocardiogram. She has diuresed quite well overnight. Hopefully, she will stabilize clinically and we will continue to follow her closely and treat as needed. [facility][id number] [facility]
[2020-05-24] MEDS: RIVAROXABAN 10 MG TAB PO SCH (11:18)
[2020-05-24] MEDS: cefTRIAXone SODIUM 1 GM in SODIUM CHL 0.9% 50ML MIN-BAG+ 50 ML IVPB SCH (13:25)
[2020-05-24] MEDS: AZITHROMYCIN IV 500 MG in SODIUM CHLORIDE 0.9% 250ML 250 ML IVPB SCH (14:35)
[2020-05-24] MEDS ORDERED: POTASSIUM CHLORIDE 20 MEQ TAB PO ONE (14:50)
--- NOTE | 2020-05-24 15:14 | PN ---
SUPERVISING PHYSICIAN: Garland Whelan MD DATE: 05/24/20 SUBJECTIVE: The patient states she feels like her shortness of breath is a little bit better. She still has a cough. She does not think the breathing treatments are helping with her cough. OBJECTIVE: VITAL SIGNS: Blood pressure 103/65, heart rate 70, respiratory rate 18, temperature 97.6, oxygen saturation 97% on 3 liters via nasal cannula. GENERAL: Ms. Morton is an 85-year-old female who is in no significant distress at this time. NEUROLOGIC: The patient is alert. LUNGS: Some bibasilar rales, but there is no active wheezing or rhonchi. CARDIOVASCULAR: Regular rate and rhythm. Normal S1, S2. ABDOMEN: Soft. Positive bowel sounds. EXTREMITIES: Lower extremities with no edema. LABORATORY: White count 16.4, hemoglobin 10.1, hematocrit 32.7, platelet count 254. Chemistry shows sodium 143, potassium 3.3, chloride 106, CO2 28, BUN 32, creatinine 1.21, glucose 125, calcium 9.0. RADIOLOGY: Chest x-ray unchanged bilateral interstitial prominence, small bilateral pleural effusions. She did have echocardiogram with showed mild concentric left ventricular hypertrophy with a left ventricular ejection fraction 50-55%, mild left atrial enlargement, mild right atrial enlargement, severe elevated right ventricular systolic pressure although it does not tell me exactly what that is. Grade 1 diastolic dysfunction. Normal right ventricular size and function. ASSESSMENT: 1. Acute exacerbation of congestive heart failure with diastolic dysfunction per echocardiogram. 2. Bilateral pneumonia, likely community acquired. 3. Acute kidney injury, improved. 4. Atrial fibrillation on Xarelto and a beta momo. 5. Hypertension. 6. Hypothyroidism. 7. Hypokalemia. PLAN: At this point, I do not think she has any inflammatory process related to chronic obstructive pulmonary disease or asthma, so I am going to stop her steroids. There is a possibility she may have a degree of asthma that we do not know about, but she does not have any active wheezing. We will continue the IV Lasix and antibiotics. I will replace her potassium. We will wean her oxygen as tolerated. If we can get her off oxygen, we will send her home. [facility][id number] [facility]
[2020-05-24] MEDS: guaiFENesin W/CODEINE LIQ 10 ML UD PO PRN (16:42)
[2020-05-24] MEDS: BUDESONIDE NEBS 0.5 MG/2 ML INH NEB SCH (20:54)
[2020-05-25] MEDS ORDERED: PANTOPRAZOLE SODIUM TAB 40 MG PO ONE (03:40)
[2020-05-25] MEDS ORDERED: LEVOTHYROXINE SODIUM 0.075 MG TAB ONE (03:40)
[2020-05-25] MEDS: LEVOTHYROXINE SODIUM 0.075 MG TAB PO SCH (06:08)
[2020-05-25] MEDS: PANTOPRAZOLE SODIUM TAB 40 MG PO SCH (06:08)
--- NOTE | 2020-05-25 07:15 | RAD ---
EXAMINATION: Chest x-ray one view. INDICATION: CHF COMPARISON: 05/24/2020 TECHNIQUE: Frontal radiograph chest. FINDINGS: Left chest wall cardiac device with leads unchanged. Overlying EKG leads and wires obscure portions of the lungs. The cardiac silhouette is enlarged and stable Increased interstitial markings are present throughout the lungs. Small bilateral pleural effusions are again suspected There is no pneumothorax. IMPRESSION: Increased interstitial markings are present throughout the lungs, likely related to pulmonary vascular congestion. Small bilateral pleural effusions are unchanged Electronically signed by: Sandro Jacobson MD 05/25/2020 7:12 AM [facility]
[2020-05-25] MEDS: LEVALBUTEROL NEBS 1.25 MG/3 ML VIAL INH SCH ×4 (08:20→21:40)
[2020-05-25] MEDS: BUDESONIDE NEBS 0.5 MG/2 ML INH NEB SCH ×2 (08:20→21:40)
[2020-05-25] MEDS: LORATADINE 10 MG TAB PO SCH (09:16)
[2020-05-25] MEDS: guaiFENesin ER TAB 600 MG TAB PO SCH ×2 (09:16→20:17)
[2020-05-25] MEDS: POTASSIUM CHLORIDE 10 MEQ TAB PO SCH (09:16)
[2020-05-25] MEDS: METOPROLOL TARTRATE 25 MG TAB PO SCH ×2 (09:16→20:17)
[2020-05-25] MEDS: BIFIDOBACTERIUM INFANTIS 4 MG CAP PO SCH ×2 (09:16→20:17)
[2020-05-25] MEDS: IV SET AND CAP CHANGE INJ INJ SCH ×2 (09:17→14:48)
[2020-05-25] MEDS: FUROSEMIDE 40 MG TAB PO SCH (09:17)
[2020-05-25] MEDS: SODIUM CHLORIDE 0.9% (FLUSH) 10 ML SYG IV SCH ×2 (09:17→20:17)
[2020-05-25] MEDS: LISINOPRIL 5 MG TAB PO SCH (09:17)
[2020-05-25] MEDS: RIVAROXABAN 10 MG TAB PO SCH (13:18)
[2020-05-25] MEDS: cefTRIAXone SODIUM 1 GM in SODIUM CHL 0.9% 50ML MIN-BAG+ 50 ML IVPB SCH (14:49)
[2020-05-25] MEDS: AZITHROMYCIN IV 500 MG in SODIUM CHLORIDE 0.9% 250ML 250 ML IVPB SCH (14:50)
[2020-05-25] MEDS: guaiFENesin W/CODEINE LIQ 10 ML UD PO PRN ×2 (15:04→19:41)
--- NOTE | 2020-05-25 19:31 | PN ---
SUPERVISING PHYSICIAN: Garland Whelan M.D. DATE: 05/25/20 SUBJECTIVE: The patient feels a little bit better than she did yesterday. She is not as short of breath and she is actually up at the sink washing her face. OBJECTIVE: VITAL SIGNS: Blood pressure 103/67, heart rate 75, respiratory rate 18, temperature 97.1, oxygen saturation 98%. GENERAL: Ms. Morton is an 85 year-old female in no active distress. NEUROLOGIC: The patient is alert. LUNGS: Clear to auscultation bilaterally with a little bit diminished bases. CARDIOVASCULAR: The patient has a regular rate and rhythm. Normal S1 and S2. ABDOMEN: Soft. Positive bowel sounds. GENITOURINARY: Exam is deferred. EXTREMITIES: Lower extremities with no significant edema. Chest x-ray indicates increased pulmonary vascular congestion, although clinically she has improved. White count is down to 10,000, hemoglobin 9.8, hematocrit 30.8, platelet count 239. Chemistry is unremarkable. BNP is 703 which is improved from admission at 868 ASSESSMENT: 1. Acute exacerbation of congestive heart failure with diastolic dysfunction and severe pulmonary artery hypertension per echocardiogram. 2. Bilateral pneumonia, likely community acquired. 3. Acute kidney injury, improved. 4. Atrial fibrillation on Xarelto and a beta momo. 5. Hypertension, controlled. 6. Hypothyroidism. 7. Hypokalemia. PLAN: The patient continues to improve. I have taken her off of oxygen. Her saturations are okay at rest, but with ambulation she drops to 86. We are getting home oxygen set up as well as home health. Once home health is actually set up she can go home which will likely be tomorrow on the . #[id number] [facility]
[2020-05-26] MEDS: LEVOTHYROXINE SODIUM 0.075 MG TAB PO SCH (06:03)
[2020-05-26] MEDS: PANTOPRAZOLE SODIUM TAB 40 MG PO SCH (06:03)
[2020-05-26] MEDS: LEVALBUTEROL NEBS 1.25 MG/3 ML VIAL INH SCH ×2 (08:40→13:45)
[2020-05-26] MEDS: BUDESONIDE NEBS 0.5 MG/2 ML INH NEB SCH (08:40)
[2020-05-26] MEDS: guaiFENesin ER TAB 600 MG TAB PO SCH (10:15)
[2020-05-26] MEDS: LORATADINE 10 MG TAB PO SCH (10:15)
[2020-05-26] MEDS: BIFIDOBACTERIUM INFANTIS 4 MG CAP PO SCH (10:15)
[2020-05-26] MEDS: POTASSIUM CHLORIDE 10 MEQ TAB PO SCH (10:15)
[2020-05-26] MEDS: FUROSEMIDE 40 MG TAB PO SCH (10:16)
[2020-05-26] MEDS: SODIUM CHLORIDE 0.9% (FLUSH) 10 ML SYG IV SCH (10:16)
[2020-05-26] MEDS: METOPROLOL TARTRATE 25 MG TAB PO SCH (10:16)
[2020-05-26] MEDS: LISINOPRIL 5 MG TAB PO SCH (10:16)
[2020-05-26 12:20] VITALS: BP 99/65; TEMP 97.9
[2020-05-26] MEDS: RIVAROXABAN 10 MG TAB PO SCH (14:14)
[2020-05-26] MEDS: cefTRIAXone SODIUM 1 GM in SODIUM CHL 0.9% 50ML MIN-BAG+ 50 ML IVPB SCH (14:14)
[2020-05-26] MEDS: AZITHROMYCIN IV 500 MG in SODIUM CHLORIDE 0.9% 250ML 250 ML IVPB SCH (14:14)
[2020-05-26 17:17] VITALS: O2SAT 96
--- NOTE | 2020-05-27 14:00 | DS ---
SUPERVISING PHYSICIAN: Garland Whelan MD DISCHARGE DIAGNOSIS: 1. Acute exacerbation of congestive heart failure with diastolic dysfunction and severe pulmonary artery hypertension per echocardiogram. 2. Bilateral pneumonia, likely community acquired. 3. Antibiotic asthma component contributing to #2. 4. Acute kidney injury, improved. 5. Atrial fibrillation on Xarelto and a beta momo. 6. Hypertension, controlled. 7. Hypothyroidism. 8. Hypokalemia. HISTORY OF PRESENT ILLNESS: This is an 85-year-old female patient who has a past history of hypertension, congestive heart failure, atrial fibrillation with pacemaker insertion. She came to the Emergency Room with some shortness of breath. She has been feeling poorly for about a wee. It was mostly a cough that she said she usually gets about 3 times a year. She then became short of breath. She was seen at the respiratory clinic at [facility] and she tested negative for COVID at that time, but had worsening shortness of breath and increasing dry, hacking cough. She received some cough medicine but it did not improve her symptoms. She came to the Emergency Room because her O2 saturations at home were in 86 to 88%. In the Emergency Room, her vital signs were stable except her O2 saturations were 88% on room air. She was given Lasix as well as several breathing treatments and her O2 saturations came up to the mid 90s on 2 liters. Lab studies were done. Her potassium was slightly low at 3.4. Creatinine slightly elevated at 1.47. Baseline creatinine is about 0.8. BNP 868. Her COVID panel was negative. She was also given some azithromycin and ceftriaxone. The patient was admitted to the hospital in stable condition. HOSPITAL COURSE: Congestive heart failure guidelines were initiated and she was placed on scheduled IV Lasix. She was also placed on pneumonia guidelines with aggressive pulmonary hygiene including Xopenex. Her home medications were restarted. She was not on an TRAVIS inhibitor, so I put her on a very low dose of lisinopril and Xarelto and that was sufficient for DVT prophylaxis. She had a PPI for ulcer prophylaxis. Her azithromycin and Rocephin were continued. She initially got some IV steroids that were tapered and titrated to oral prednisone. An echocardiogram was ordered. She continued to have some shortness of breath off and on, but it improved slowly. She was titrated off of her IV Lasix and placed on her home medications. Given her history, it was felt there was some component of seasonal allergies or an asthma component to her shortness of breath. She continued to improve slowly over the next few days. Her oxygen was attempted to slowly wean off, but we were unable to do so, some home O2 was ordered after she did not pass her ambulation study. She is stabilized on her medications. Her shortness of breath has mostly subsided. She will be discharged home today in stable condition. LABORATORY: WBCs were 7,000 and went up as high as 16,400 and are now 10,000. Hemoglobin and hematocrit are stable at 9.8 and 30.8. She does have a left shift on differential. Electrolytes are within normal limits. BUN has improved to 36 and creatinine 1.25. RADIOLOGY: Final chest x-ray shows increased interstitial markings present throughout the lungs likely related to pulmonary vascular congestion, mild bilateral pleural effusions are unchanged. DISCHARGE PLAN: The patient will be discharged home with [facility]. She will also have home oxygen. It is recommended at followup that she have further workup to include PFT. She has also been sent home with Xopenex and a nebulizer. In addition to her routine medicines, she is to have azithromycin, cefdinir, Align and Xopenex nebulizers. I have added 2.5 mg of lisinopril to her regimen. It is to be noted that her echocardiogram was not available for this summary. It was done on Sunday. She is to have a followup appointment with her primary care physician, Dr. Reji Booker, within the next 1 to 2 weeks. She had teaching for CHF as well as breathing treatments. She is to return to the hospital or followup with Dr. Booker for any problems or complications. DISCHARGE MEDICATIONS: 1. Furosemide. 2. Sary. 3. Xarelto. 4. Potassium chloride. 5. Metoprolol tartrate. 6. Tumeric. 7. Acetaminophen. 8. Levothyroxine. 9. Align. 10. Cefdinir. 11. Lisinopril. 12. Xopenex. 13. Azithromycin. #[id number] [facility]
== END 2020-05-26 13:55 | disposition home health service (06) | DRG 291 ==
LOC: ER 21:42 → MS 05-22 02:39 → OBSVTOIN 05-22 02:39
PROVIDERS: ADMIT Nurse Practitioner Acute Care; ATTEND Nurse Practitioner Acute Care
DX: I11.0 Hypertensive heart disease with heart failure (principal); J18.9 Pneumonia, unspecified organism; N17.9 Acute kidney failure, unspecified; I50.33 Acute on chronic diastolic (congestive) heart failure; R09.02 Hypoxemia; J45.909 Unspecified asthma, uncomplicated; I48.91 Unspecified atrial fibrillation; E03.9 Hypothyroidism, unspecified; E87.6 Hypokalemia; Z79.01 Long term (current) use of anticoagulants; Z95.0 Presence of cardiac pacemaker

== ENCOUNTER → 2020-06-03 | Outpatient (CLI) | payer OTHER | LOC: RESP 14:37 | PROVIDERS: ATTEND Family Medicine | DX: R06.02 Shortness of breath (principal) | CPT/HCPCS: 94060; J7611 ==